=== PATIENT | female | born 1995 | race Caucasian/White ===

== ENCOUNTER 2022-02-16 14:51 | Emergency (ER) | payer OTHER ==
[2022-02-16 15:01] VITALS: BP 141/85; PULSE 101; RESP 18; TEMP 97.8; BMI 28.3
[2022-02-16] MEDS ORDERED: IBUPROFEN 600 MG TABLET (FP) PO ONE ×2 (15:44→15:50)
[2022-02-16] MEDS ORDERED: METHOCARBAMOL 500 MG TABLET PO ONE (15:44)
[2022-02-16] MEDS ORDERED: METHOCARBAMOL 500 MG TABLET ONE (15:50)
== END 2022-02-16 17:58 | disposition home or self-care (01) ==
LOC: JERFT 14:51
DX: M54.6 Pain in thoracic spine (principal)
CPT/HCPCS: 72040-TC; 72070-TC-FY; 73030-TC-LT-FY; 99284-25

== ENCOUNTER 2022-07-30 16:01 | Emergency (ER) | payer SELFPAY ==
[2022-07-30] MEDS ORDERED: SODIUM CHLORIDE 0.9% 500 ML INFUS.BAG IV ONE (16:05)
[2022-07-30 16:14] VITALS: RESP 20; BMI 30.1
[2022-07-30 17:09] LABS: BASO % 0.3 % (0-2.0); EOS % 0.9 % (0-4.5); HEMATOCRIT 40.8 % (32.4-45.2); HEMOGLOBIN 13.6 GM/dL (10.7-15.3); LYMPH % 36.6 % (8-40); MCH 28.9 pg (25.7-33.7); MCHC 33.4 g/dl (32.0-36.0); MEAN CELL VOLUME 86.4 fl (80-96); MEAN PLT VOLUME 7.4 fl (7.5-11.1); MONO % 7.2 % (3.8-10.2); PLATELET COUNT 345 10^3/uL (134-434); RBC 4.72 M/mm3 (3.60-5.2); RDW 14.6 % (11.6-15.6); WHITE BLOOD COUNT 9.3 K/mm3 (4.0-10.0)
[2022-07-30 17:28] LABS: ALBUMIN 3.8 g/dl (3.4-5.0); BLOOD UREA NITROGEN 18.2 mg/dL (7-18); CALCIUM 9.1 mg/dL (8.5-10.1)
[2022-07-30 17:31] LABS: CREATININE 0.8 mg/dL (0.55-1.3)
[2022-07-30 17:32] LABS: BILIRUBIN,TOTAL 0.2 mg/dL (0.2-1); TOT PROT 7.8 g/dl (6.4-8.2)
[2022-07-30 19:01] VITALS: BP 118/80; PULSE 89; TEMP 98.8
== END 2022-07-30 19:06 | disposition home or self-care (01) ==
LOC: JER 16:01
DX: R55 Syncope and collapse (principal)
CPT/HCPCS: 36415; 71046-TC-FY; 80053; 84703; 85025; 93005; 93010; 99285-25